=== PATIENT | female | born 1960 | race Caucasian/White ===

== ENCOUNTER 2017-04-01 01:54 | Inpatient (IN) | payer OTHER ==
[~2017-04-01] VITALS: Ht 170.2 cm; Wt 117.5 kg
[2017-04-01 02:52] LABS: HEMATOCRIT 26.7 % (36.0-46.0); HEMOGLOBIN 8.9 G/DL (11.9-15.5); MCH 29.8 PG (29.0-34.0); MCHC 33.3 G/DL (30.0-36.0); MCV 89.3 FL (83-99); PLATELET COUNT 206 K/uL (156-360); RBC DIS.WIDTH-CV 16.2 % (11.8-14.6); RBC DIS.WIDTH-SD 53.2 % (39-53); RED BLOOD COUNT 2.99 M/uL (3.80-5.20); WHITE BLOOD COUNT 16.6 K/uL (4.1-10.2)
[2017-04-01 03:00] LABS: CHLORIDE 98 mEq/L (99-109); POTASSIUM 3.9 mEq/L (3.7-5.4); SODIUM 135 mEq/L (136-147)
[2017-04-01 03:02] LABS: GLUCOSE 113 mg/dL (70-99)
[2017-04-01 03:06] LABS: GFR ESTIMATE (CALCULATED) 17 mL/min/
[2017-04-01 03:07] LABS: UREA NITROGEN (BUN) 54 mg/dL (9-23)
[2017-04-01 03:13] LABS: TROP-I INTERPRETATION NEGATIVE; TROPONIN-I 0.11 ng/mL (0.0-0.30)
[2017-04-01 03:27] LABS: BASOPHIL (%) 0.1 % (0-1); EOSINOPHIL (%) 0 % (0-5); IMMATURE GRANULOCYTE (%) 2.2 % (0.0-0.7); LYMPHOCYTE (%) 4.8 % (15-42); LYMPHOCYTE COUNT 0.8 K/uL (1.0-2.8); MONOCYTE (%) 5.2 % (3-12); MONOCYTE COUNT 0.9 K/uL (0-0.8); NEUTROPHIL (%) 87.7 % (45-76); NEUTROPHIL COUNT 14.6 K/uL (1.8-6.4); PLAT.SUFFICIENCY ADEQUATE
[2017-04-01 07:58] VITALS: BP 154/81
[2017-04-01] MEDS ORDERED: GABAPENTIN100 MG PO (09:45)
[2017-04-01] MEDS ORDERED: FUROSEMIDE80 MG PO (09:46)
[2017-04-01] MEDS ORDERED: FAMOTIDINE20 MG PO (09:47)
[2017-04-01] MEDS ORDERED: PREDNISONE20 MG PO ×2 (09:48)
[2017-04-01 12:59] VITALS: BP 142/57
[2017-04-01 14:54] LABS: APPEARANCE CLOUDY ((CLEAR)); BILIRUBIN NEGATIVE; BLOOD MODERATE; COLOR YELLOW ((YELLOW)); GLUCOSE (STRIP) NEGATIVE; KETONES NEGATIVE; LEUKOCYTES NEGATIVE; NITRITE NEGATIVE; PROTEIN (STRIP) >=500; SPECIFIC GRAVITY 1.023 (1.000-1.030); UROBILINOGEN 0.2 MG/DL (0.2-1.0)
[2017-04-01 16:15] VITALS: BP 137/58
[2017-04-01 16:43] LABS: RED BLOOD CELLS 20-30 /HPF (0-5)
[2017-04-01 16:44] LABS: EPITHELIAL CELLS RARE /HPF; WHITE BLOOD CELLS 0-5 /HPF (0-5)
[2017-04-01 16:45] LABS: BACTERIA 1+ /HPF
[2017-04-01 16:46] LABS: FINE GRANULAR CASTS 0-5 /LPF; MUCUS 1+ /LPF
[2017-04-01 17:41] LABS: UR CREATININE CONCENTRATION 192.3 MG/DL
[2017-04-01 20:07] VITALS: BP 123/68
[2017-04-01 23:23] VITALS: BP 141/67
[2017-04-02 04:15] VITALS: BP 147/67
[2017-04-02 05:54] LABS: HEMATOCRIT 24.6 % (36.0-46.0); HEMOGLOBIN 8.2 G/DL (11.9-15.5); MCH 29.3 PG (29.0-34.0); MCHC 33.3 G/DL (30.0-36.0); MCV 87.9 FL (83-99); PLATELET COUNT 189 K/uL (156-360); RBC DIS.WIDTH-CV 16.2 % (11.8-14.6); WHITE BLOOD COUNT 19.3 K/uL (4.1-10.2)
[2017-04-02 06:20] LABS: ABS NEUTROPHIL COUNT 18.5; ANISOCYTOSIS 1+; BAND NEUTROPHILS 10.4 % (0-8.0); BURR CELLS 1+; EOSINOPHIL ABS CT 0; LYMPHOCYTES 1.8 % (15.0-45.0); MACROCYTES 1+; METAMYELOCYTES 2.6 %; PLAT.SUFFICIENCY ADEQUATE; SCHISTOCYTES 1+; SEG.NEUTROPHILS 85.2 % (46.0-76.0)
[2017-04-02 06:38] LABS: CHLORIDE 97 MEQ/L (99-109); CREATININE 2.9 MG/DL (0.6-1.3); GFR ESTIMATE (CALCULATED) 18 mL/min/; GLUCOSE 132 mg/dL (70-99); PHOSPHORUS 5.5 mg/dL (2.5-4.9); POTASSIUM 3.9 MEQ/L (3.7-5.4); SODIUM 134 MEQ/L (136-147); UREA NITROGEN (BUN) 56 mg/dL (9-23)
[2017-04-02 08:24] LABS: ALBUMIN < 1.5 G/DL (3.2-4.8)
[2017-04-02 09:28] VITALS: BP 144/65
[2017-04-02 12:20] VITALS: BP 128/70
[2017-04-02 19:45] VITALS: BP 128/81
[2017-04-02 23:20] VITALS: BP 153/72
[2017-04-03 03:15] VITALS: BP 134/78
[2017-04-03 05:33] LABS: HEMATOCRIT 25.3 % (36.0-46.0); HEMOGLOBIN 8.6 G/DL (11.9-15.5); MCH 29.3 PG (29.0-34.0); MCV 86.1 FL (83-99); PLATELET COUNT 190 K/uL (156-360); RBC DIS.WIDTH-CV 16.6 % (11.8-14.6); RBC DIS.WIDTH-SD 51.9 % (39-53); RED BLOOD COUNT 2.94 M/uL (3.80-5.20); WHITE BLOOD COUNT 22.6 K/uL (4.1-10.2)
[2017-04-03 05:59] LABS: BASOPHIL (%) 0.1 % (0-1); EOSINOPHIL (%) 0 % (0-5); HEMATOLOGY COMMENT 1 SN; IMMATURE GRANULOCYTE (%) 0.8 % (0.0-0.7); LYMPHOCYTE (%) 2.7 % (15-42); LYMPHOCYTE COUNT 0.6 K/uL (1.0-2.8); MONOCYTE (%) 1.9 % (3-12); MONOCYTE COUNT 0.4 K/uL (0-0.8); NEUTROPHIL (%) 94.5 % (45-76); NEUTROPHIL COUNT 21.4 K/uL (1.8-6.4)
[2017-04-03 06:23] LABS: ALBUMIN 1.8 G/DL (3.2-4.8); ALKALINE PHOSPHATASE 113 IU/L (3-129); ALT (GPT) 25 IU/L (3-49); AST (GOT) 39 IU/L (2-34); CHLORIDE 98 MEQ/L (99-109); GLUCOSE 123 mg/dL (70-99); POTASSIUM 3.7 MEQ/L (3.7-5.4); SODIUM 131 MEQ/L (136-147); TOTAL BILIRUBIN 0.2 MG/DL (0.0-1.0); TOTAL PROTEIN 5.3 G/DL (6.4-8.3); UREA NITROGEN (BUN) 66 mg/dL (9-23)
[2017-04-03 06:27] LABS: CREATININE 2.4 MG/DL (0.6-1.3); GFR ESTIMATE (CALCULATED) 22 mL/min/
[2017-04-03 08:43] VITALS: BP 141/74
[2017-04-03 11:26] VITALS: BP 150/100
[2017-04-03 15:02] VITALS: BP 150/92
[2017-04-03 20:41] VITALS: BP 151/77
[2017-04-04] VITALS (8 sets, daily range): BP systolic 149–174; BP diastolic 76–92
[2017-04-04 05:48] LABS: BASOPHIL (%) 0.1 % (0-1); EOSINOPHIL (%) 0 % (0-5); HEMATOCRIT 25.7 % (36.0-46.0); HEMOGLOBIN 8.6 G/DL (11.9-15.5); IMMATURE GRANULOCYTE (%) 0.6 % (0.0-0.7); LYMPHOCYTE (%) 2.7 % (15-42); LYMPHOCYTE COUNT 0.7 K/uL (1.0-2.8); MCH 29.3 PG (29.0-34.0); MCHC 33.5 G/DL (30.0-36.0); MCV 87.4 FL (83-99); MONOCYTE (%) 1.5 % (3-12); MONOCYTE COUNT 0.4 K/uL (0-0.8); NEUTROPHIL (%) 95.1 % (45-76); NEUTROPHIL COUNT 25.5 K/uL (1.8-6.4); PLATELET COUNT 201 K/uL (156-360); RBC DIS.WIDTH-CV 16.9 % (11.8-14.6); RBC DIS.WIDTH-SD 53.9 % (39-53); RED BLOOD COUNT 2.94 M/uL (3.80-5.20); WHITE BLOOD COUNT 26.9 K/uL (4.1-10.2)
[2017-04-04 06:22] LABS: CHLORIDE 98 MEQ/L (99-109); GFR ESTIMATE (CALCULATED) 27 mL/min/; GLUCOSE 163 mg/dL (70-99); POTASSIUM 3.7 MEQ/L (3.7-5.4); SODIUM 134 MEQ/L (136-147); UREA NITROGEN (BUN) 73 mg/dL (9-23)
[2017-04-05 03:39] VITALS: BP 159/68
[2017-04-05 06:28] LABS: BASOPHIL (%) 0.1 % (0-1); EOSINOPHIL (%) 0 % (0-5); HEMATOCRIT 26.7 % (36.0-46.0); HEMOGLOBIN 8.9 G/DL (11.9-15.5); IMMATURE GRANULOCYTE (%) 0.7 % (0.0-0.7); LYMPHOCYTE (%) 3.8 % (15-42); LYMPHOCYTE COUNT 0.8 K/uL (1.0-2.8); MCH 29.2 PG (29.0-34.0); MCHC 33.3 G/DL (30.0-36.0); MCV 87.5 FL (83-99); MONOCYTE (%) 3.2 % (3-12); MONOCYTE COUNT 0.7 K/uL (0-0.8); NEUTROPHIL (%) 92.2 % (45-76); NEUTROPHIL COUNT 19.8 K/uL (1.8-6.4); PLATELET COUNT 228 K/uL (156-360); RBC DIS.WIDTH-CV 17.1 % (11.8-14.6); RBC DIS.WIDTH-SD 54.9 % (39-53); RED BLOOD COUNT 3.05 M/uL (3.80-5.20); WHITE BLOOD COUNT 21.5 K/uL (4.1-10.2)
[2017-04-05 06:51] LABS: ALBUMIN 1.6 G/DL (3.2-4.8); ALKALINE PHOSPHATASE 135 IU/L (3-129); ALT (GPT) 8 IU/L (3-49); AST (GOT) 29 IU/L (2-34); CHLORIDE 100 MEQ/L (99-109); CREATININE 1.9 MG/DL (0.6-1.3); GFR ESTIMATE (CALCULATED) 29 mL/min/; MAGNESIUM 2.4 mg/dl (1.3-2.7); PHOSPHORUS 6.1 mg/dL (2.5-4.9); SODIUM 135 MEQ/L (136-147); TOTAL BILIRUBIN 0.2 MG/DL (0.0-1.0); TOTAL PROTEIN 4.8 G/DL (6.4-8.3); UREA NITROGEN (BUN) 86 mg/dL (9-23)
[2017-04-05 06:54] LABS: GLUCOSE 104 mg/dL (70-99)
[2017-04-05 08:00] VITALS: BP 158/78
[2017-04-05 16:00] VITALS: BP 158/78
[2017-04-05 20:16] VITALS: BP 139/77
[2017-04-05 23:54] VITALS: BP 130/65
[2017-04-06 03:54] VITALS: BP 125/70
[2017-04-06 06:04] LABS: HEMATOCRIT 22.9 % (36.0-46.0); HEMOGLOBIN 7.4 G/DL (11.9-15.5); MCH 28.5 PG (29.0-34.0); MCHC 32.3 G/DL (30.0-36.0); MCV 88.1 FL (83-99); PLATELET COUNT 239 K/uL (156-360); RBC DIS.WIDTH-CV 16.9 % (11.8-14.6); RBC DIS.WIDTH-SD 54.6 % (39-53); WHITE BLOOD COUNT 15.4 K/uL (4.1-10.2)
[2017-04-06 06:57] LABS: BASOPHIL (%) 0.1 % (0-1); EOSINOPHIL (%) 0.1 % (0-5); IMMATURE GRANULOCYTE (%) 0.7 % (0.0-0.7); LYMPHOCYTE (%) 8.3 % (15-42); LYMPHOCYTE COUNT 1.3 K/uL (1.0-2.8); MONOCYTE (%) 3.8 % (3-12); MONOCYTE COUNT 0.6 K/uL (0-0.8); NEUTROPHIL COUNT 13.4 K/uL (1.8-6.4)
[2017-04-06 07:15] VITALS: BP 136/74
[2017-04-06 08:07] LABS: CHLORIDE 101 MEQ/L (99-109); CREATININE 2.1 MG/DL (0.6-1.3); GFR ESTIMATE (CALCULATED) 26 mL/min/; GLUCOSE 89 mg/dL (70-99); MAGNESIUM 2.4 mg/dl (1.3-2.7); PHOSPHORUS 6.3 mg/dL (2.5-4.9); SODIUM 135 MEQ/L (136-147); UREA NITROGEN (BUN) 92 mg/dL (9-23)
[2017-04-06 12:58] VITALS: BP 138/67
[2017-04-06 20:48] VITALS: BP 120/60
[2017-04-07] VITALS: BP 122/70
[2017-04-07 04:32] VITALS: BP 119/62
[2017-04-07 06:14] LABS: HEMATOCRIT 24.8 % (36.0-46.0); HEMOGLOBIN 7.9 G/DL (11.9-15.5); MCH 28.3 PG (29.0-34.0); MCHC 31.9 G/DL (30.0-36.0); MCV 88.9 FL (83-99); PLATELET COUNT 292 K/uL (156-360); RBC DIS.WIDTH-CV 16.6 % (11.8-14.6); RBC DIS.WIDTH-SD 54.4 % (39-53); RED BLOOD COUNT 2.79 M/uL (3.80-5.20); WHITE BLOOD COUNT 14.6 K/uL (4.1-10.2)
[2017-04-07 06:40] LABS: ALBUMIN 1.5 G/DL (3.2-4.8); ALKALINE PHOSPHATASE 127 IU/L (3-129); BASOPHIL (%) 0.1 % (0-1); CHLORIDE 100 MEQ/L (99-109); CREATININE 1.9 MG/DL (0.6-1.3); EOSINOPHIL (%) 0 % (0-5); GFR ESTIMATE (CALCULATED) 29 mL/min/; IMMATURE GRANULOCYTE (%) 0.8 % (0.0-0.7); LYMPHOCYTE (%) 3.6 % (15-42); LYMPHOCYTE COUNT 0.5 K/uL (1.0-2.8); MAGNESIUM 2.5 mg/dl (1.3-2.7); MONOCYTE (%) 2.7 % (3-12); MONOCYTE COUNT 0.4 K/uL (0-0.8); NEUTROPHIL (%) 92.8 % (45-76); NEUTROPHIL COUNT 13.5 K/uL (1.8-6.4); PHOSPHORUS 6.8 mg/dL (2.5-4.9); SODIUM 137 MEQ/L (136-147); TOTAL BILIRUBIN 0.2 MG/DL (0.0-1.0); TOTAL PROTEIN 4.9 G/DL (6.4-8.3); UREA NITROGEN (BUN) 94 mg/dL (9-23)
[2017-04-07 06:43] LABS: AST (GOT) 13 IU/L (2-34); GLUCOSE 114 mg/dL (70-99)
[2017-04-07 08:24] VITALS: BP 130/78
[2017-04-07 09:29] LABS: ALT (GPT) < 3 IU/L (3-49)
[2017-04-07] MEDS ORDERED: SPIRIVA RESPIMAT4 GM IH (09:34)
[2017-04-07] MEDS ORDERED: NICOTINE PATCH1 EAC2 TD (09:34)
[2017-04-07] MEDS ORDERED: METOPROLOL SUCC25 MG PO (09:34)
[2017-04-07] MEDS ORDERED: ANCEF,KEFZOL1 GM IV (09:34)
[2017-04-07] MEDS ORDERED: BUPROPION XL150 MG PO (09:35)
[2017-04-07] MEDS ORDERED: ASPIR-LOW81 MG PO (09:35)
[2017-04-07] MEDS ORDERED: CALCIUM ACETAT667 MG PO (09:36)
[2017-04-07] MEDS ORDERED: NIZORAL 2% CREA15 GM TP (09:37)
[2017-04-07] MEDS ORDERED: ADVAIR HFA120 INHALA IH (09:37)
[2017-04-07] MEDS ORDERED: PREDNISONE10 MG PO (09:37)
[2017-04-07 12:08] VITALS: BP 124/70
== END 2017-04-07 12:23 | DRG 193 ==
LOC: EME 01:54 → EDBD 01:54 → EDOF 05:03 → 4EAST 05:03 → ENRESERV 05:07 → 4EAST 07:29 → ENRESERV 04-04 14:38 → 2EASTP 04-04 16:27
PROVIDERS: Emergency Medicine; Hospitalist; Internal Medicine Nephrology; Student in an Organized Health Care Education/Training Program
PROC: 0H98XZZ Drainage of Buttock Skin, External Approach (ICD-10-PCS; principal; 2017-04-02)
DX: J10.00 Influenza due to other identified influenza virus with unspecified type of pneumonia (principal); J96.01 Acute respiratory failure with hypoxia; J44.0 Chronic obstructive pulmonary disease with (acute) lower respiratory infection; J44.1 Chronic obstructive pulmonary disease with (acute) exacerbation; R78.81 Bacteremia; N17.0 Acute kidney failure with tubular necrosis; T39.395A Adverse effect of other nonsteroidal anti-inflammatory drugs [NSAID], initial encounter; L02.31 Cutaneous abscess of buttock; L03.317 Cellulitis of buttock; B95.61 Methicillin susceptible Staphylococcus aureus infection as the cause of diseases classified elsewhere; D64.9 Anemia, unspecified; E83.39 Other disorders of phosphorus metabolism; E83.51 Hypocalcemia; E88.09 Other disorders of plasma-protein metabolism, not elsewhere classified; F31.9 Bipolar disorder, unspecified; F42.9 Obsessive-compulsive disorder, unspecified; I12.9 Hypertensive chronic kidney disease with stage 1 through stage 4 chronic kidney disease, or unspecified chronic kidney disease; N18.9 Chronic kidney disease, unspecified; I48.92 Unspecified atrial flutter; K21.9 Gastro-esophageal reflux disease without esophagitis; G62.9 Polyneuropathy, unspecified; G89.29 Other chronic pain; M54.5 Low back pain; E66.01 Morbid (severe) obesity due to excess calories; F17.210 Nicotine dependence, cigarettes, uncomplicated; Z96.649 Presence of unspecified artificial hip joint; Z68.41 Body mass index [BMI] 40.0-44.9, adult
CPT/HCPCS: 71045; 73030; 73080; 73090; 76770; 76937; 80048; 80053; 81003; 82040; 82570; 82948; 83605; 83735; 84100; 84156; 84484; 85025; 85027; 87040; 87070; 87075; 87076; 87077; 87185; 87186; 87205; 87801; 93005; 93970; 93971; 94640; 94640 76; 94760; 94799; 97530 GP; 99202; 99281; 99285; C1751; C1894; J0610; J0690; J0696; J1644; J1940; J2543; J2920; J3370; J3475; J7030; J7050; J7512